=== PATIENT | female | born 2005 | race Caucasian/White ===

== ENCOUNTER 2024-09-11 11:58 | Emergency (ER) | payer BC, MEDICAID, SELFPAY ==
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
[2024-09-11 12:14] VITALS: BP 121/85; PULSE 102; RESP 16; TEMP 36.7; O2SAT 100; BMI 26.6
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
[2024-09-11] MEDS: KETOROLAC INJ 60 MG/2 ML VIAL 30 MG IM (12:36)
[2024-09-11] MEDS: CYCLObenzaPRINE 5 MG TABLET PO (12:36)
== END 2024-09-11 13:55 | disposition home or self-care (01) ==
PROVIDERS: Emergency Provider Emergency Medicine; PCP Nurse Practitioner Family
DX: S09.90XA Unspecified injury of head, initial encounter (principal); S49.92XA Unspecified injury of left shoulder and upper arm, initial encounter; S59.902A Unspecified injury of left elbow, initial encounter; M54.2 Cervicalgia; V43.53XA Car driver injured in collision with pick-up truck in traffic accident, initial encounter
CPT/HCPCS: 70450; 72125; 73030; 73080; 96372; 99284; J1885; A9270

== ENCOUNTER → 2025-06-25 | Outpatient (CLI) | payer BC, MEDICAID, SELFPAY ==
--- NOTE | 2025-06-25 14:00 | XR_ITS ---
Examination: MRI brain with intravenous contrast Technique: Multiple axial sagittal coronal brain MRI images post intravenous ministration 12 cc gadolinium Date and time: June 25, 2025, 1624 hrs., Comparison August 16, 2023 Indications: Blurred vision, headaches dizziness 9 years, elevated prolactin on laboratory examination 2022 Findings: Ventricles are not enlarged. No mass effect upon the ventricular system Small [id number] coronal image 12 demonstrates low signal in the pituitary, 6 x 12 mm No disruption of the optic chiasm Fourth ventricle midline Impression: Suspicious for 6 x 12 mm pituitary microadenoma Recommend 3 month follow-up MRI post contrast
[2025-06-25 14:40] LABS: HCG Qualitative,Urine Negative
== END | disposition home or self-care (01) ==
LOC: SMRI 13:52
PROVIDERS: Referring Provider Nurse Practitioner Family; Visit Provider Nurse Practitioner Family
DX: R51.9 Headache, unspecified (principal); R79.89 Other specified abnormal findings of blood chemistry; Z32.00 Encounter for pregnancy test, result unknown
CPT/HCPCS: 70552; 81025; A9577